=== PATIENT | male | born 1950 | race Caucasian/White ===

== ENCOUNTER → 2016-09-30 | Outpatient (CLI) | payer OTHER | LOC: PCVCCLINIC 12:09 | PROVIDERS: ATTEND Internal Medicine | DX: I70.0 Atherosclerosis of aorta (principal); E78.5 Hyperlipidemia, unspecified; G62.9 Polyneuropathy, unspecified; G47.30 Sleep apnea, unspecified | CPT/HCPCS: 93005; G0463 ==

== ENCOUNTER → 2017-10-03 | Outpatient (CLI) | payer MEDICARE, OTHER | END | disposition home or self-care (01) | LOC: PCVCCLINIC 10:00 | DX: I70.0 Atherosclerosis of aorta (principal); E78.5 Hyperlipidemia, unspecified; G60.9 Hereditary and idiopathic neuropathy, unspecified; G47.30 Sleep apnea, unspecified; Z79.82 Long term (current) use of aspirin; Z79.899 Other long term (current) drug therapy | CPT/HCPCS: 80061; 93005; G0463 ==

== ENCOUNTER → 2018-10-03 | Outpatient (CLI) | payer MEDICARE, OTHER | END | disposition home or self-care (01) | LOC: PCVCCLINIC 11:51 | PROVIDERS: ATTEND Internal Medicine | DX: I70.0 Atherosclerosis of aorta (principal); E78.5 Hyperlipidemia, unspecified; G60.9 Hereditary and idiopathic neuropathy, unspecified; G47.30 Sleep apnea, unspecified; J63.2 Berylliosis; K21.9 Gastro-esophageal reflux disease without esophagitis; R25.1 Tremor, unspecified; Z88.8 Allergy status to other drugs, medicaments and biological substances; Z79.82 Long term (current) use of aspirin | CPT/HCPCS: 36415; 80061; 93005; G0463 ==

== ENCOUNTER → 2019-05-11 | Outpatient (CLI) | payer MEDICARE, OTHER ==
--- NOTE | 2019-05-11 12:42 | PCVCIMAG ---
APPROVED REPORT Study performed: 05/11/2019 11:28:18 Exam: Stress Echocardiogram Indication: Hypertension, Dyspnea , Hyperlipidemia Patient Location: Echo lab Stress Nurse: Luz Scott RN Room #: 2 Status: routine Ht: 5 ft 10 in HR: 62 bpm BP: 132/84 mmHg Rhythm: NSR Medical History Medical History: Beryliosis, HTN, Hyperlipidemia Cardiac Risk Factors: Hyperlipidemia, HTN,[place] Previous Cardiac Procedures: none Pretest Chest Pain Characteristics: No chest pain Exercise History: Sedentary Procedure The patient underwent an Exercise Stress Test using the Noe Protocol. Blood pressure, heart rate, and EKG were monitored. An Echocardiogram was performed by exhaust emissions automotive technician in four stages in quad fashion. At peak stress, four selected images were obtained and placed side by side with resting images for comparison. Stress Test Details Stress Test: Exercise stress testing was performed using a Noe protocol. HR Resting HR: 62 bpmMax Heart Rate (APMHR): 153 bpm Max HR Achieved: 144 bpmTarget HR (85% APMHR): 130 bpm % of APMHR: 94 Recovery HR: 93 bpm HR response to stress: Normal HR response to stress BP Resting BP: 132/84 mmHg Max BP: 188/74 mmHg Recovery BP: 144/74 mmHg BP response to stress: Normal blood pressure response to stress. ECG Resting ECG: Sinus Rhythm Stress ECG: Sinus Rhythm ST Change: Non-ischemic Maximum ST Deviation: 0 mm Arrhythmia: occ PACs Recovery ECG: Sinus Rhythm Recovery ST Change: Non-ischemic Recovery ST Deviation: 0 mm Recovery Arrhythmia: None Clinical Reason for Termination: Maximal effort Stress Symptoms: Dyspnea Exercise duration: 6 min 00 sec Highest Stage Achieved: Stage 2: 2.5 mph at 12% grade. Exercise capacity: 7.0 METs Overall Exercise Capacity for Age: Poor Scale: Sedentary Angina Score: None No complications. Stress ECG Conclusion Clinical: Non-ischemic ECG: Non-ischemic Collier Treadmill Score is 6.0 which is Low risk. Pre-Stress Echo The resting Echocardiogram showed normal left ventricular contractility with an estimated Ejection Fraction of about 55-60%. Normal wall motion in all segments on baseline images. Post-Stress Echo The stress Echocardiogram showed normal left ventricular contractility with an estimated Ejection Fraction of about 65-70%. Normal augmentation of wall motion in all segments on post stress images. Clinical No clinical or ECG evidence for ischemia. Conclusion Clinical Response: Non-ischemic Exercise Capacity: Below Average Stress ECG Response: Non-ischemic Stress Echo Images: Non-ischemic No clinical, EKG or echocardiographic evidence for ischemia. No echocardiographic evidence for exercise induced ischemia. Normal stress echocardiogram with maximal exercise stress. Normal color doppler. No regurgitation or stenosis present on mitral, tricuspid and aortic valves. Trace pulmonic regurgitation is seen. <Conclusion> No clinical, EKG or echocardiographic evidence for ischemia. No echocardiographic evidence for exercise induced ischemia. Normal stress echocardiogram with maximal exercise stress. Normal color doppler. No regurgitation or stenosis present on mitral, tricuspid and aortic valves. Trace pulmonic regurgitation is seen.
== END | disposition home or self-care (01) ==
LOC: PCVCIMAG 11:14
PROVIDERS: ATTEND Internal Medicine
DX: I10 Essential (primary) hypertension (principal); G47.30 Sleep apnea, unspecified; I70.0 Atherosclerosis of aorta; E78.5 Hyperlipidemia, unspecified; J63.2 Berylliosis; G60.9 Hereditary and idiopathic neuropathy, unspecified; K21.9 Gastro-esophageal reflux disease without esophagitis; Z90.09 Acquired absence of other part of head and neck; Z82.3 Family history of stroke; Z88.1 Allergy status to other antibiotic agents; Z88.8 Allergy status to other drugs, medicaments and biological substances
CPT/HCPCS: 93325; 93351